=== PATIENT | female | born 1985 ===

== ENCOUNTER 2020-01-20 11:48 | Outpatient (CLI) | payer OTHER | END 2020-01-21 15:00 | disposition home or self-care (01) | LOC: SONOGRAMA 11:48 | DX: N88.8 Other specified noninflammatory disorders of cervix uteri (principal) ==

== ENCOUNTER 2020-10-31 08:46 | Outpatient (CLI) | payer OTHER | END 2020-10-31 09:50 | disposition home or self-care (01) | LOC: NST 08:46 | PROVIDERS: ATTEND Obstetrics & Gynecology | DX: Z34.83 Encounter for supervision of other normal pregnancy, third trimester (principal) ==

== ENCOUNTER 2020-11-07 11:18 | Outpatient (CLI) | payer OTHER | END 2020-11-07 12:02 | disposition home or self-care (01) | LOC: NST 11:18 | PROVIDERS: ATTEND Obstetrics & Gynecology Maternal & Fetal Medicine | DX: Z34.83 Encounter for supervision of other normal pregnancy, third trimester (principal) ==

== ENCOUNTER 2022-11-29 08:34 | Inpatient (IN) | payer OTHER ==
[2022-11-28 14:19] LABS: PH,URINE 5.5 (5.0-8.0); URINE APPEARANCE Clear; URINE BILIRRUBIN Negative (NEGATIVE); URINE BLOOD Negative; URINE COLOR Yellow; URINE GLUCOSE Negative (NEGATIVE); URINE LEUKOCYTE Negative; URINE NITRATE Negative; URINE PROTEIN Negative (NEGATIVE); URINE UROBILINOGEN 0.2 E.U./dl
[2022-11-28 14:21] LABS: URINE BACTERIA 1496.4 uL (0.0-1933); URINE EPITHELIAL CELLS 5.7 uL (0.0-38.8); URINE RBC 5.6 uL (0.0-20.8); URINE WBC 16.6 uL (0.0-23.2)
[2022-11-28 14:42] LABS: INR < 0.93; PARTIAL THROMBOPLASTIN TIME 29.6 SECONDS (22.0-34.0); PROTHROMBIN TIME 9.4 SECONDS (9.0-11.5)
[2022-11-28 15:03] LABS: ALBUMIN 2.8 gm/dL (3.4-5.0); BILIRUBIN TOTAL 0.34 mg/dL (0.3-1.2); CALCIUM 8.8 mg/dL (8.5-10.1); CREATININE SERUM 0.67 mg/dL (0.55-1.02); GFR 100.16; GLOBULINA 3.9 G/DL (2.4-3.5); POTASSIUM 3.98 mEq/L (3.5-5.1); TOTAL PROTEIN 6.7 gm/dL (6.4-8.2)
[~2022-11-29] VITALS: Ht 182.9 cm; Wt 94.3 kg
[2022-12-11] MEDS ORDERED: PRIMACARE SOFT1 EACH PO (09:30)
[2022-12-11 23:17] LABS: HEMATOCRIT 38.3 % (36.0-45.00); HEMOGLOBIN 12.6 g/dL (12.0-15.00); MEAN CELL VOLUME 91.1 fL (80.00-100.00); MEAN CORPUSCULAR HGB CONC 32.9 g/dl (32.0-36.0); PLATELET COUNT 180 K/uL (150-450); RED BLOOD COUNT 4.21 M/uL (4.00-6.00); RED CELL DISTRIBUTION WIDTH 13.4 % (11.5-14.5)
[2022-12-11 23:26] LABS: ABG PH 7.266 (7.35-7.45); ABG pCO2 50.4 mmHg (35-45)
[2022-12-11 23:27] LABS: ABG PO2 22.7 mmHg (80-100)
[2022-12-11 23:28] LABS: BICARBONATE 22.4 mmol/l (23-25); Tco2 23.9 mmol/l; o2 21 %
[2022-12-11 23:30] LABS: SaO2 29.4 %
[2022-12-12 07:31] LABS: HEMATOCRIT 40.5 % (36.0-45.00); HEMOGLOBIN 13.9 g/dL (12.0-15.00); MEAN CELL VOLUME 89.5 fL (80.00-100.00); MEAN CORPUSCULAR HEMOGLOBIN 30.8 pg (27.00-32.0); MEAN CORPUSCULAR HGB CONC 34.4 g/dl (32.0-36.0); PLATELET COUNT 165 K/uL (150-450); RED BLOOD COUNT 4.53 M/uL (4.00-6.00); RED CELL DISTRIBUTION WIDTH 14.1 % (11.5-14.5)
[2022-12-13] MEDS ORDERED: OXYC1TAB9 PO (07:34)
[2022-12-13] MEDS ORDERED: KETO10TA2 PO (07:34)
== END 2022-12-13 13:50 | disposition home or self-care (01) | DRG 788 ==
LOC: O/R 12-11 06:07 → OB/GYN 12-11 11:45 → O/R 12-11 13:01 → OB/GYN 12-11 16:55
PROVIDERS: Obstetrics & Gynecology Maternal & Fetal Medicine; ADMIT Obstetrics & Gynecology; ATTEND Obstetrics & Gynecology
PROC: 4A1HXCZ Monitoring of Products of Conception, Cardiac Rate, External Approach (ICD-10-PCS; 2022-12-11)
PROC: 10D00Z1 Extraction of Products of Conception, Low, Open Approach (ICD-10-PCS; principal; 2022-12-11 11:45)
DX: O34.211 Maternal care for low transverse scar from previous cesarean delivery (principal); Z3A.39 39 weeks gestation of pregnancy; Z37.0 Single live birth; Z20.822 Contact with and (suspected) exposure to COVID-19

== ENCOUNTER 2024-12-28 09:30 | Inpatient (IN) | payer OTHER ==
[~2024-12-28] VITALS: Ht 182.9 cm; Wt 95.3 kg
[~2024-12-28 09:30] MED LIST: KETO10TA2 PO; OXYC1TAB9 PO; PRIMACARE SOFT1 EACH PO
[2024-12-28 11:40] LABS: INR < 0.93
[2024-12-28 11:45] LABS: ALT/SGPT 22.0 U/L (12-78); AST/SGOT 17.0 U/L (15-37); BILIRUBIN TOTAL 0.49 mg/dL (0.3-1.2); BUN CREA RATIO 24.0 (7.0-25.0); CREATININE SERUM 0.59 mg/dL (0.55-1.02); GFR 114.69; GLOBULINA 3.4 G/DL (2.4-3.5); GLUCOSE FASTING 66.0 mg/dL (65-100); OSMOLALITY SERUM 276.0 MOSM/KG (275-295)
[2025-01-05 05:31] VITALS: BP 109/77
[2025-01-05] MEDS ORDERED: CITRIC ACID/SODIUM CITRATE 30 ML BLIST.PACK PO ONE (07:36)
[2025-01-05] MEDS ORDERED: CEFAZOLIN SODIUM 1,000 MG VIAL ONE (07:36)
[2025-01-05] MEDS ORDERED: ERYTHROMYCIN BASE OPHT 1GM EACH TUBE OP ONE (07:36)
[2025-01-05] MEDS ORDERED: OXYTOCIN 10 UNITS/ML VIAL ONE ×2 (07:36→12:06)
[2025-01-05] MEDS ORDERED: KETOROLAC TROMETHAMINE 30 MG VIAL ONE (10:01)
[2025-01-05] MEDS ORDERED: MORPHINE SULFATE 4 MG/ML CARTRIDGE IV PRN (12:45)
[2025-01-05] MEDS ORDERED: SIMETHICONE 125 MG CAPSULE PO SCH (13:00)
[2025-01-05 13:14] LABS: BASO % 0.3 % (0.1-1.2); EOS # 0.06 (0.04-0.54); EOS % 0.4 % (0.7-7.0); LYMPH # 1.35 (1.18-3.74); LYMPH % 9.4 % (19.3-53.1); MEAN PLATELET VOLUME 10.30 fl (9.4-12.4); MONO # 0.69 (0.24-0.82); MONO % 4.8 % (4.7-12.5); NEUT # 12.05 (1.56-6.13); NEUT % 84.4 % (34.0-71.1); RED CELL DISTRIBUTION WIDTH 13.3 % (11.6-14.4)
[2025-01-05] MEDS ORDERED: MORPHINE SULFATE 4 MG/ML VIAL IV PRN (14:00)
[2025-01-05 14:03] VITALS: BP 111/73
[2025-01-05 16:00] VITALS: BP 105/68
[2025-01-05] MEDS ORDERED: KETOROLAC TROMETHAMINE 10 MG TABLET PO SCH (18:00)
[2025-01-06 03:28] VITALS: BP 112/71
[2025-01-06 07:35] LABS: BASO % 0.5 % (0.1-1.2); EOS # 0.22 (0.04-0.54); EOS % 2.3 % (0.7-7.0); LYMPH # 1.80 (1.18-3.74); LYMPH % 19.0 % (19.3-53.1); MEAN PLATELET VOLUME 10.00 fl (9.4-12.4); MONO # 0.74 (0.24-0.82); MONO % 7.8 % (4.7-12.5); NEUT # 6.57 (1.56-6.13); NEUT % 69.7 % (34.0-71.1); RED CELL DISTRIBUTION WIDTH 13.3 % (11.6-14.4)
[2025-01-06 08:00] VITALS: BP 105/67
[2025-01-06] MEDS ORDERED: OxyCODONE HCL 5 MG TABLET (ROXICODONE) PO SCH (08:00)
[2025-01-06 16:52] VITALS: BP 104/67
[2025-01-07 03:02] VITALS: BP 117/72
[2025-01-07] MEDS ORDERED: OXYCODONE HCL5 MG PO (07:44)
[2025-01-07] MEDS ORDERED: KETO10TA2 PO (07:44)
[2025-01-07 08:00] VITALS: BP 116/72
== END 2025-01-07 11:11 | disposition home or self-care (01) | DRG 788 ==
LOC: O/R 01-05 06:00 → OB/GYN 01-05 09:30
PROVIDERS: Obstetrics & Gynecology Maternal & Fetal Medicine; ADMIT Obstetrics & Gynecology; ATTEND Obstetrics & Gynecology
PROC: 4A1HXCZ Monitoring of Products of Conception, Cardiac Rate, External Approach (ICD-10-PCS; 2025-01-05)
PROC: 10D00Z1 Extraction of Products of Conception, Low, Open Approach (ICD-10-PCS; principal; 2025-01-05 09:45)
DX: O34.211 Maternal care for low transverse scar from previous cesarean delivery (principal); Z3A.37 37 weeks gestation of pregnancy; Z37.0 Single live birth